=== PATIENT | male | born 1985 | race Caucasian/White ===

== ENCOUNTER 2018-10-13 14:55 | Emergency (ER) | payer OTHER ==
[2018-10-13 15:08] VITALS: BP 126/82; PULSE 82; TEMP 98; BMI 39.1
--- NOTE | 2018-10-13 15:16 | PDOC ---
History of Present Illness - General Chief Complaint: Rash Stated Complaint: RASH Time Seen by Provider: 10/13/18 15:12 History Source: Patient Exam Limitations: No Limitations - History of Present Illness Initial Comments: 10/13/18 15:12 HISTORY OF PRESENT ILLNESS: 33-year-old male presents emergency department for reevaluation of scabies. Patient was seen and treated for scabies one week ago by his primary doctor still having slight itching and interdigital lesions. Patient was only given one treatment during his visit last week. Patient is here with his family who are exhibiting similar symptoms at this time. No recent travel or sick contacts. PAST MEDICAL HISTORY: Denies past medical history SURGICAL HISTORY: Denies ALLERGIES: No known drug allergies REVIEW OF SYSTEMS General/Constitutional: Denies fever or chills. Denies weakness, weight change. HEENT: Denies change in vision. Denies ear pain or discharge. Denies sore throat. Cardiovascular: Denies chest pain or shortness of breath. Respiratory: Denies cough, wheezing, or hemoptysis. Gastrointestinal: Denies nausea, vomiting, diarrhea or constipation. Denies rectal bleeding. Genitourinary: Denies dysuria, frequency, or change in urination. Musculoskeletal: Denies joint or muscle swelling or pain. Denies neck or back pain. Skin and breasts: see HPI Neurologic: Denies headache, vertigo, loss of consciousness, or loss of sensation. Psychiatric: Denies depression or anxiety. Endocrine: Denies increased thirst. Denies abnormal weight change. Hematologic/Lymphatic: Denies anemia, easy bleeding, or history of blood clots. Allergic/Immunologic: Denies hives or skin allergy. Denies latex allergy. PHYSICAL EXAM General Appearance: Well-appearing, appropriately dressed. No apparent distress , no intoxication. Respiratory/Chest: Lungs CTAB. No shortness of breath, chest tenderness, respiratory distress, accessory muscle use. No crackles, rales, rhonchi, stridor , wheezing, dullness Cardiovascular: RRR. S1, S2. No JVD, murmur, bradycardia, tachycardia. Vascular Pulses: Dorsalis-Pedis (R): 2+, Dorsalis-Pedis (L): 2+ Gastrointestinal/Abdominal: Normal bowel sounds. Abdomen soft, non-distended. No tenderness or rebound tenderness. No organomegaly, pulsatile mass, guarding, hernia, hepatomegaly, splenomegaly. Lymphatic: No adenopathy, tenderness. Musculoskeletal/Extremities: Normal inspection. FROM of all extremities, normal capillary refill. Pelvis Stable. No CVA tenderness. No tenderness to extremities, pedal edema, swelling, erythema or deformity. Integumentary: Interdigital lesions present with tunneling noted. 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 Fully oriented, alert. Appropriate mood/affect. Motor strength 5/5. No appreciable EOM palsy, facial droop or sensory deficit. 10/13/18 15:15 Past History - Past Medical History Allergies/Adverse Reactions: Allergies Allergy/AdvReac Type Severity Reaction Status Date / Time No Known Allergies Allergy Verified 10/13/18 15:08 Home Medications: Ambulatory Orders Permethrin 5% Topical Cream [Elimite -] 1 applic TP ONCE #1 tube 10/13/18 COPD: No - Suicide/Smoking/Psychosocial Hx Smoking History: Never smoked *Physical Exam - Vital Signs Last Vital Signs Temp Pulse Resp BP Pulse Ox 98 F 82 18 126/82 99 10/13/18 15:05 10/13/18 15:05 10/13/18 15:05 10/13/18 15:05 10/13/18 15:05 Medical Decision Making - Medical Decision Making 10/13/18 15:14 A/P: 33-year-old male recently diagnosed with scabies with recurrent symptoms Patient was given one treatment. We'll add an additional treatment and one refill to fully treat as his family is now exhibiting symptoms. I discussed the physical exam findings, ancillary test results and final diagnoses with the patient. I answered all of the patient's questions. The patient was satisfied with the care received and felt comfortable with the discharge plan and treatment plan. The patient will call their primary care physician within 24 hours to arrange follow-up and will return to the Emergency Department with any new, persistent or worsening symptoms. *DC/Admit/Observation/Transfer Diagnosis at time of Disposition: Scabies - Discharge Dispostion Disposition: HOME Condition at time of disposition: Fair Decision to Admit order: No - Prescriptions Prescriptions: Permethrin 5% Topical Cream [Elimite -] 1 applic TP ONCE #1 tube - Referrals - Patient Instructions Printed Discharge Instructions: DI for Scabies - Post Discharge Activity
== END 2018-10-13 15:39 | disposition home or self-care (01) ==
LOC: JERFT 14:55
DX: B86 Scabies (principal)
CPT/HCPCS: 99281-25

== ENCOUNTER 2019-01-10 15:16 | Emergency (ER) | payer OTHER ==
[2019-01-10 15:26] VITALS: BP 140/87; PULSE 93; TEMP 97.8; BMI 38.4
--- NOTE | 2019-01-10 15:26 | PDOC ---
Rapid Medical Evaluation Time Seen by Provider: 01/10/19 15:21 Medical Evaluation: Allergies Allergy/AdvReac Type Severity Reaction Status Date / Time No Known Allergies Allergy Verified 10/13/18 15:08 01/10/19 15:22 Pt c/o: redness and tearing to ghislaine eyes, placed on drops this weekend and then ointment today, here for 2nd opinion and to r/o uveitis. No headache or blurred vision Pt on brief exam:noted erythematous tearing ghislaine eyes with upper eyelid edema to left eye Pt ordered for: none Pt to proceed to the ED Discharge Disposition - Diagnosis Eye pain - Referrals - Patient Instructions - Post Discharge Activity
--- NOTE | 2019-01-10 16:05 | PDOC ---
History of Present Illness - General Chief Complaint: Eye Problem Stated Complaint: UVEITIS Time Seen by Provider: 01/10/19 15:21 History Source: Patient Exam Limitations: No Limitations Past History - Past Medical History Allergies/Adverse Reactions: Allergies Allergy/AdvReac Type Severity Reaction Status Date / Time No Known Allergies Allergy Verified 01/10/19 15:23 Home Medications: Ambulatory Orders Permethrin 5% Topical Cream [Elimite -] 1 applic TP ONCE #1 tube 10/13/18 Dextran 70/Hypromellose/Pf [Artificial Tears Drops] 1 each OU QID #1 bottle 02/18 COPD: No - Immunization History Immunization Up to Date: Yes - Psycho Social/Smoking Cessation Hx Smoking History: Never smoked Have you smoked in the past 12 months: No Information on smoking cessation initiated: No *Physical Exam - Vital Signs Last Vital Signs Temp Pulse Resp BP Pulse Ox 97.8 F 93 H 17 140/87 97 01/10/19 15:23 01/10/19 15:23 01/10/19 15:23 01/10/19 15:23 01/10/19 15:23 - Physical Exam General Appearance: No: Apparent Distress HEENT: positive: EOMI, PEDRITO, Other (no pain on eye movement, B/L eyes injected, vision is 20/20 L eye, vision 20/20 R eye, +tearing of L eye ) Neurologic: positive: Alert Medical Decision Making - Medical Decision Making 33-year-old male with no significant past medical history comes in with bilateral pink eye for 1 week. Patient states his left eye became red first and then 3-4 days ago his right eye became pink. Also has itching and tearing of both eyes. All of patient's family members have pink eye. Patient was seen last week and given tobramycin eyedrops but states they have not been helping. Went to another urgent care today for evaluation and was told to come into ER for evaluation for possible uveitis. Patient was prescribed erythromycin ointment and azelastine eyedrops for his eyes as well which he has not yet tried. Denies fever, eye pain, visual changes, vomiting, headache, pain with eye movement. Patient does not wear contacts or glasses Based on physical exam not concerning for uveitis. Patient has intact vision and does not complain of any eye pain. This could possibly either viral or allergic conjunctivitis given complaint of itching. We will also send prescription for artificial tears 01/10/19 16:00 Discharge - Discharge Information Problems reviewed: Yes Clinical Impression/Diagnosis: Conjunctivitis Qualifiers: Conjunctivitis type: acute Acute conjunctivitis type: unspecified Laterality: bilateral Qualified Code(s): H10.33 - Unspecified acute conjunctivitis, bilateral Condition: Stable Disposition: HOME - Admission No - Additional Discharge Information Prescriptions: Dextran 70/Hypromellose/Pf [Artificial Tears Drops] 1 each OU QID #1 bottle Prescription Drug Monitoring Program (I-STOP) results: I-STOP not reviewed - Follow up/Referral - Patient Discharge Instructions Patient Printed Discharge Instructions: DI for Conjunctivitis Additional Instructions: Thank you for choosing [facility]. It was a pleasure taking care of you. Your prescribed artificial tears you may apply 5-6 times a day as needed for your symptoms. You may also apply cold compresses to your eyes as needed. Continue use of the azelastine eye drops. Be sure to wash hands as this can spread by contact Follow-up with your doctor in 2 days Return to the Emergency Department if your symptoms worsen or persist, you have fever, severe eye pain, changes in vision or other concerning symptoms. - Post Discharge Activity
[2019-01-12] MEDS ORDERED: ACETAMINOPHEN 325 MG TABLET (FP) ONE (12:02)
[2019-01-12] MEDS ORDERED: TETRACAINE 0.5% OPHTH SOLN 2 ML BOTTLE ONE (12:02)
== END 2019-01-10 16:12 | disposition home or self-care (01) ==
LOC: JERFT 15:16
PROC: 4A07X0Z Measurement of Visual Acuity, External Approach (ICD-10-PCS; principal; 2019-01-10)
DX: H10.33 Unspecified acute conjunctivitis, bilateral (principal)
CPT/HCPCS: 99173; 99281-25

== ENCOUNTER 2019-01-12 11:08 | Emergency (ER) | payer OTHER ==
[2019-01-12 11:17] VITALS: BP 125/89; PULSE 80; TEMP 97.8; BMI 38.4
--- NOTE | 2019-01-12 11:37 | PDOC ---
History of Present Illness - General Chief Complaint: Eye Problem Stated Complaint: PINK EYE Time Seen by Provider: 01/12/19 11:19 History Source: Patient - History of Present Illness Timing/Duration: other Past History - Past Medical History Allergies/Adverse Reactions: Allergies Allergy/AdvReac Type Severity Reaction Status Date / Time No Known Allergies Allergy Verified 01/12/19 11:17 Home Medications: Ambulatory Orders Permethrin 5% Topical Cream [Elimite -] 1 applic TP ONCE #1 tube 10/13/18 Dextran 70/Hypromellose/Pf [Artificial Tears Drops] 1 each OU QID #1 bottle 02/18 COPD: No - Immunization History Immunization Up to Date: Yes - Psycho Social/Smoking Cessation Hx Smoking History: Never smoked Have you smoked in the past 12 months: No Review of Systems - Review of Systems Constitutional: No: Fever HEENTM: Yes: Eye Pain, Blurred Vision, Tearing *Physical Exam - Vital Signs Last Vital Signs Temp Pulse Resp BP Pulse Ox 97.8 F 80 18 125/89 99 01/12/19 11:10 01/12/19 11:10 01/12/19 11:10 01/12/19 11:10 01/12/19 11:10 - Physical Exam General Appearance: Yes: Appropriately Dressed. No: Apparent Distress HEENT: positive: EOMI, PEDRITO, Normal ENT Inspection, Normal Voice, Other ( Bilateral conjunctival erythema with significant tearing, no discharge, no obvious corneal infiltrates, VA 20/50 OS/OD/OS (baseline per pt)). negative: Scleral Icterus (R), Scleral Icterus (L) Neck: positive: Supple Respiratory/Chest: negative: Respiratory Distress Integumentary: positive: Dry, Warm Neurologic: positive: Fully Oriented, Alert, Normal Mood/Affect Medical Decision Making - Medical Decision Making 01/12/19 11:39 33-year-old male, no significant history, here with b/l conjunctival erythema with significant tearing, burning and "gritty" sensation > 1 week. Does not report visual change but states vision becomes blurry when he is tearing excessively. Reports crusting in am. No photophobia or floaters. Does not wear contacts lens. Was seen in urgent care twice last week for same. On initial visit, was prescribed antibiotic drops with no improvement and states he returned to urgent care 2 days ago and was referred to ER for possible uveitis. Patient was seen by ED provider at [facility] who did not suspect uveitis per ER notes and pt was discharge on erythromycin ointment and artificial tears. States he has been using drops with no relief. Of note, multiple family members at home with "pink eye" per patient's girlfriend. See exam Conjunctivitis Not improving w/ multiple abx drops No contact lens use Multiple family members w/ similar sxs VA baseline for pt on exam today w/ no obvious corneal infiltrate to suspect keratoconjunctivitis, unlikely uveitis Exam c/w viral source but given duration, will refer to ophtho at this time, to continue erythromycin and artificial tears as d/w pt 01/12/19 12:[address] Pardo of ophthalmology who states she will see patient tomorrow in the a.m. Discharge - Discharge Information Problems reviewed: Yes Clinical Impression/Diagnosis: Conjunctivitis Qualifiers: Conjunctivitis type: acute Acute conjunctivitis type: unspecified Laterality: bilateral Qualified Code(s): H10.33 - Unspecified acute conjunctivitis, bilateral Disposition: HOME - Follow up/Referral - Patient Discharge Instructions Patient Printed Discharge Instructions: Conjunctivitis Additional Instructions: Please follow-up with eye doctor, Dr. Zoe Pardo in the am. Office number is [phone]. Please call office and let them know that you were seen in the ED at [facility] and that ED staff spoke to Dr. Sal who wants to see you tomorrow. Address is [address] [place] [address]. in [place] Continue erythromycin and natural tears for now. - Post Discharge Activity Work/Back to School Note: Back to Work
[2019-01-12] MEDS ORDERED: TETRACAINE 0.5% HCL 0.6ML DROPPER.BOTTLE OU ONE (13:40)
[2019-01-12] MEDS ORDERED: ACETAMINOPHEN 325 MG TABLET (FP) PO ONE (13:40)
== END 2019-01-12 12:13 | disposition home or self-care (01) ==
LOC: JERFT 11:08
DX: H10.33 Unspecified acute conjunctivitis, bilateral (principal)
CPT/HCPCS: 99281-25